=== PATIENT | female | born 1990 | race Two or more races ===

== ENCOUNTER 2018-03-08 15:00 | Emergency (ER) | payer SELFPAY ==
[~2018-03-08] VITALS: Ht 170.2 cm; Wt 83.9 kg
--- NOTE | 2018-03-08 15:00 | NUR ---
ED Nurse Note: Pt AAO x4 present at ER c/o 10/ throat pain due to coughing for several days. VSS, calm and cooperative during initial assessment.
[2018-03-08 15:10] VITALS: BP 126/79
[2018-03-08] MEDS ORDERED: Lidocaine 2% Visc 15ml soln ORAL ONE (15:45)
[2018-03-08] MEDS ORDERED: Dexamethasone 4mg/ml vial IM ONE (15:45)
[2018-03-08] MEDS ORDERED: Augmentin 875mg Tab ORAL ONE (15:45)
--- NOTE | 2018-03-08 15:56 | Emergency Room Report ---
History of Present Illness General Chief Complaint: Sore Throat Source: Patient Present Illness HPI 27-year-old female presents to the emergency department complaining of 7 out of 10 in severity sore throat pain 5 days. Patient reports initial fever which responds well to [id number] medication. Patient states she continues to have some chills she states that her throat symptoms have been progressive and pain is exacerbated upon swallowing or attempts to open her mouth real wide. Patient reports some changes in her for she denies difficulty breathing. She reports tender lymph nodes bilaterally and states that her throat pain is equal on both sides and is not localized to one side of her throat. Patient denies pain under the tongue. She denies inability to elevate her own saliva. Allergies: Coded Allergies: No Known Allergies (Unverified , 03/08/18) Patient History Past Medical History: see triage record Past Surgical History: none Pertinent Family History: none Last Menstrual Period: 01/25/2018 Now: No : 2 Para: 0 Reviewed Nursing Documentation: PMH: Agreed; PSxH: Agreed Nursing Documentation-PMH Past Medical History: No Stated History Review of Systems All Other Systems: negative except mentioned in HPI Physical Exam Vital Signs Date Time Temp Pulse Resp B/P (MAP) Pulse Ox O2 Delivery O2 Flow Rate FiO2 03/08/18 15:10 98.0 79 17 126/79 98 Room Air Sp02 EP Interpretation: reviewed, normal General Appearance: no apparent distress, alert, GCS 15, non-toxic Head: normocephalic, atraumatic Eyes: bilateral eye normal inspection, bilateral eye PERRL ENT: hearing grossly normal, normal voice, TMs + canals normal, uvula midline - no unilateral soft palate fullness., nasal congestion, tonsillar swelling, pharyngeal erythema Neck: full range of motion, no meningismus, no bony tend Respiratory: chest non-tender, lungs clear, normal breath sounds, no respiratory distress, no accessory muscle use, no wheezing, speaking full sentences Cardiovascular #1: regular rate, rhythm Musculoskeletal: back normal, gait/station normal, normal range of motion, non- tender Neurologic: alert, oriented x3, responsive, motor strength/tone normal, sensory intact, speech normal, grossly normal Psychiatric: judgement/insight normal Skin: normal color, no rash, warm/dry, well hydrated Lymphatic: no adenopathy Medical Decision Making PA Attestation Dr. sanchez is my supervising Physician whom patient management has been discussed with. Diagnostic Impression: Primary Impression: Acute bacterial pharyngitis ER Course 27-year-old female presents to the emergency department complaining of 7 out of 10 in severity sore throat pain 5 days. Patient reports initial fever which responds well to [id number] medication. Patient states she continues to have some chills she states that her throat symptoms have been progressive and pain is exacerbated upon swallowing or attempts to open her mouth real wide. Patient reports some changes in her for she denies difficulty breathing. She reports tender lymph nodes bilaterally and states that her throat pain is equal on both sides and is not localized to one side of her throat. Patient denies pain under the tongue. She denies inability to elevate her own saliva. Ddx considered but are not limited to: pharyngitis, strep, QUILL CLEANER, ludwigs angina, URI Vital signs: are WNL, pt. is afebrile H&PE are most consistent with: pharyngitis presumed strep. ORDERS: None required at this time as the diagnosis is clinical ED INTERVENTIONS -Decadron IM -Augmentin PO -Lidocaine Viscous PO Discussed with this patient suspicion/concern for possible QUILL CLEANER at this time she would like to do oral antibiotic trial with close outpatient follow-up and we discussed signs and symptoms that would indicate prompt return to the emergency department for more aggressive treatment. DISCHARGE: At this time pt. is stable for d/c to home. Will provide printed patient care instructions, and any necessary prescriptions. Care plan and follow up instructions have been discussed with the patient prior to discharge. Last Vital Signs Date Time Temp Pulse Resp B/P (MAP) Pulse Ox O2 Delivery O2 Flow Rate FiO2 03/08/18 15:14 97.9 102 18 140/91 99 Room Air Disposition: HOME, SELF-CARE Condition: Stable Scripts Ibuprofen* (MOTRIN*) 600 Mg Tablet 600 MG ORAL THREE TIMES A DAY, #30 TAB 0 Refills Prov: Vilma Cesar 03/08/18 Lidocaine HCl 2% Viscous (Lidocaine HCl 2% Viscous) 100 Ml Solution 10 ML ORAL QID, #240 ML Prov: Vilma Cesar 03/08/18 Acetaminophen With Codeine (T#3) (TYLENOL #3 TAB*) Y Tab 1 TAB ORAL Q6HR PRN for For Pain, #10 TAB Prov: Vilma Cesar 03/08/18 Amoxicillin/Potassium Clav 875-125* (AUGMENTIN 875-125 TABLET*) 1 Each Tablet 1 TAB ORAL TWICE A DAY for 10 Days, #20 TAB Prov: Vilma Cesar 03/08/18 Departure Forms: Return to Work Return to Work Date: Mar 11, 2018 Work Restrictions: None Other Restrictions: May return Sooner if Symptoms have resolved. Return to Full Activity: Mar 11, 2018 Patient Instructions: Peritonsillar Abscess, [id number], Strep Throat Additional Instructions: Take medications as directed. Follow up with a Primary Care Provider in 3-5 days, even if your symptoms have resolved. Keep close eye on worsening of swelling in the throat, difficulty swallowing , pain primarily on one side, or changes to your voice. This would make having a peritonsillar abscess more likely. please see attached information regarding "QUILL CLEANER" to familiarize yourself. Close outpatient management with antibiotics and pain medication may clear this up on its own, but if the symptoms mentioned above appear or your symptoms worsen then more aggressive treatment will be needed in the ED. Return sooner to ED if new symptoms occur, or current symptoms become worse. Do not drink alcohol, drive, or operate heavy machinery while taking Tylenol # 3 as this may cause drowsiness. - Please note that this Emergency Department Report was dictated using [employer] manager technology software, occasionally this can lead to erroneous entry secondary to interpretation by the dictation equipment. Vilma Cesar Mar 08, 2018 15:56
[2018-03-08] MEDS ORDERED: ACETAMINOPHEN-1 EAC1 ORAL (16:09)
[2018-03-08] MEDS ORDERED: IBUPROFEN600 MG ORAL (16:09)
[2018-03-08] MEDS ORDERED: LIDOCAINE VISC100 ML ORAL (16:09)
[2018-03-08] MEDS ORDERED: AUGMENTIN 875-1 EAC1 ORAL (16:09)
[2018-03-08 16:40] VITALS: BP 124/77
--- NOTE | 2018-03-08 16:40 | NUR ---
ED Nurse Note: Pt cleared to be discharged by [facility]. Pt stable with stable VS, improved pain level to 2/10. Received discharge instruction and prescriptions. Pt verbalized understanding. Pt ambulated to be discharged.
== END 2018-03-08 16:40 | disposition home or self-care (01) ==
LOC: EMR 15:41
DX: J02.8 Acute pharyngitis due to other specified organisms (principal); B96.89 Other specified bacterial agents as the cause of diseases classified elsewhere
CPT/HCPCS: 96372; 99283; J1100